=== PATIENT | male | born 1985 | race Two or more races ===

== ENCOUNTER 2018-09-08 03:48 | Emergency (ER) | payer OTHER ==
[~2018-09-08] VITALS: Ht 182.9 cm; Wt 68.0 kg
[2018-09-08] MEDS ORDERED: IBUPROFEN400 MG PO (07:12)
[2018-09-08] MEDS ORDERED: VALACYCLOVIR500 MG PO (07:12)
== END 2018-09-08 08:07 | disposition home or self-care (01) ==
LOC: ER 03:48
DX: M70.21 Olecranon bursitis, right elbow (principal); F06.4 Anxiety disorder due to known physiological condition